=== PATIENT | female | born 1975 | race Caucasian/White ===

== ENCOUNTER 2017-08-12 09:49 | Emergency (ER) | payer MEDICAID ==
[2017-08-12] MEDS ORDERED: Ondansetron 4 MG/2 ML SDV IVPUSH ONE (10:20)
[2017-08-12] MEDS ORDERED: Ondansetron 4 MG/2 ML SDV ONE (10:24)
--- NOTE | 2017-08-12 10:40 | EDM.PDOC ---
ED HPI GENERAL MEDICAL PROBLEM - General Chief Complaint: Diabetic Complaint Stated Complaint: DIABETIC Time Seen by Provider: 08/12/17 09:50 Source of Information: Reports: Patient, Family History Limitations: Reports: Altered Mental Status. Denies: Physical Impairment, Respiratory Distress - History of Present Illness INITIAL COMMENTS - FREE TEXT/NARRATIVE: 42 yr female presents with N/V and hyperglycemia. She has Diabetes type 1. She has been nauseated with vomiting for 1-2 days. Daughter is with her and she has her insulin Basalgar with her and Novolog. No respiratory distress, no pain stated per pt. Zofran 4 mg IV given and Nacl @ 200cc/hr started to right arm. UP=118. Pt alert to take water. BP 100/48 to left arm with HOB elevated 60*. Pt wearing glasses. 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 History: Reports: (, on BCP) Other OB/BYN History: 2 C sections Endocrine/Metabolic History: Reports: Diabetes, Type I Social & Family History - Family History Family Medical History: Noncontributory Psychiatric: Reports: None Endocrine/Metabolic: Reports: Diabetes, type II Oncologic: Reports: Breast - Tobacco Use Smoking Status *Q: Light Tobacco Smoker Years of Tobacco use: 20 Packs/Tins Daily: 0.3 Second Hand Smoke Exposure: No - Caffeine Use Caffeine Use: Reports: Soda - Recreational Drug Use Recreational Drug Use: No ED ROS GENERAL - Review of Systems Review Of Systems: Unable To Obtain (Pt alert to taking fluids, but not responding to questions, daughter here and taking fluids yesterday.) ED EXAM GENERAL NO PERIP PULSE - Physical Exam Exam: See Below Exam Limited By: No Limitations General Appearance: No Apparent Distress, Lethargic Nose: Normal Inspection, Normal Mucosa Throat/Mouth: Normal Lips, Normal Voice, No Airway Compromise Head: Atraumatic, Normocephalic Neck: Supple, Non-Tender Respiratory/Chest: No Respiratory Distress, Lungs Clear, Normal Breath Sounds Cardiovascular: Normal Peripheral Pulses, Regular Rate, Rhythm, No Edema GI/Abdominal: Soft, Non-Tender, No Distention Back Exam: Normal Inspection Extremities: Normal Inspection, Normal Range of Motion, Non-Tender, No Pedal Edema Neurological: Alert, Normal Gait, Normal Reflexes, Slow to Respond Skin Exam: Warm, Dry, Normal Color Lymphatic: No Adenopathy Course - Vital Signs Last Recorded V/S: Last Vital Signs Temp 96.8 F 08/12/17 09:50 Pulse 110 H 08/12/17 09:50 Resp 20 08/12/17 09:50 BP 90/40 L 08/12/17 09:50 Pulse Ox 95 08/12/17 09:50 - Orders/Labs/Meds Orders: Active Orders 24 hr Category Date Time Status Bedrest [RC] ASDIRECTED Care 08/12/17 10:04 Active Blood Glucose Check, Bedside [] QIDACANDBED Care 08/12/17 10:04 Active Vital Signs [RC] Q2H Care 08/12/17 10:04 Active Chest 1V Frontal [CR] Stat Exams 08/12/17 11:28 Taken BASIC METABOLIC PANEL,BMP [CHEM] Stat Lab 08/12/17 12:05 Ordered Ciprofloxacin in D5W [Cipro in D5W 400 MG/200 ML] 400 Med 08/12/17 20:00 Active mg Premix Bag 1 bag IV Q12HR Insulin Regular, Human [HumuLIN R] 100 unit Med 08/12/17 10:15 Active Sodium Chloride 0.9% [Normal Saline] 100 ml IV .CONTINUOUS Sodium Chloride 0.9% [Normal Saline] 500 ml Med 08/12/17 10:15 Active IV .BOLUS Medication Orders Insulin Human Regular 100 unit (/ Sodium Chloride) 101 mls @ 5.05 mls/hr IV .CONTINUOUS PATRICIA; 5 UNITS/HR PRN Reason: Protocol Sodium Chloride (Normal Saline) 500 mls @ 1,000 mls/hr IV .BOLUS PATRICIA Ciprofloxacin/Dextrose 400 mg/ (Premix) 200 mls @ 200 mls/hr IV Q12HR PATRICIA Labs: Laboratory Tests 08/12/17 08/12/17 08/12/17 Range/Units 10:20 10:20 10:30 WBC 28.3 H* D (4.0-11.0) K/uL RBC 3.99 (3.80-5.80) M/uL Hgb 12.5 (11.5-16.5) g/dL Hct 40.6 (37.0-47.0) % MCV 102 H (76-96) fL MCH 31.3 (27.0-32.0) pg MCHC 30.8 L (31.0-35.0) g/dL RDW 12.1 (11.0-16.0) % Plt Count 475 D (150-500) K/uL MPV 10.6 H (6.0-10.0) fL Neut % (Auto) 85.5 H (45.0-70.0) % Lymph % (Auto) 9.1 L (20.0-40.0) % [place] % (Auto) 5.2 (3.0-10.0) % Eos % (Auto) 0.0 L (1.0-5.0) % Baso % (Auto) 0.2 (0.0-0.5) % Neut # (Auto) 24.15 H (2.00-7.50) K/uL Lymph # (Auto) 2.58 (1.50-4.00) K/uL [place] # (Auto) 1.46 H (0.20-0.80) K/uL Eos # (Auto) 0.01 L (0.04-0.40) K/uL Baso # (Auto) 0.05 (0.02-0.10) K/uL Sodium 130 L (136-145) mmol/L Potassium 6.4 H* D (3.5-5.1) mmol/L Chloride 88 L* (98-107) mmol/L Carbon Dioxide 3.4 L* (21.0-32.0) mmol/L Anion Gap 45.0 H (5.0-15.0) mmol/L BUN 61 H* D (8-26) mg/dL Creatinine 2.64 H D (0.55-1.02) mg/dL Est Cr Clr Drug Dosing TNP Estimated GFR (MDRD) 20 L (>60) MLS/MIN BUN/Creatinine Ratio 23.1 (6-25) Glucose 1168 H* D (74-100) mg/dL Calcium 9.8 (8.5-10.1) mg/dL Phosphorus 11.4 H (2.5-4.9) mg/dL Magnesium 3.0 H (1.8-2.4) mg/dL Total Bilirubin 0.6 D (0.0-1.0) mg/dL AST 25 (15-37) U/L ALT 23 (12-78) U/L Alkaline Phosphatase 130 H (46-116) U/L Total Protein 7.8 (6.4-8.2) g/dL Albumin 3.4 (3.4-5.0) g/dL Globulin 4.4 H (2.2-4.2) g/dL Albumin/Globulin Ratio 0.8 (0.8-2.0) Urine Color Urine Appearance (CLEAR) Urine pH (5.0-8.0) Ur Specific [place] (1.003-1.030) Urine Protein (NEGATIVE) mg/dL Urine Glucose (UA) (NEGATIVE) mg/dL Urine Ketones (NEGATIVE) mg/dL Urine Occult Blood (NEGATIVE) Urine Nitrite (NEGATIVE) Urine Bilirubin (NEGATIVE) Urine Urobilinogen (0.2-1.0) E.U./dL Ur Leukocyte Esterase (NEGATIVE) Urine RBC /HPF Urine WBC /HPF Ur Squamous Epith Cells /HPF Urine Bacteria /HPF Ketones Moderate H (NEGATIVE) 08/12/17 Range/Units 11:26 WBC (4.0-11.0) K/uL RBC (3.80-5.80) M/uL Hgb (11.5-16.5) g/dL Hct (37.0-47.0) % MCV (76-96) fL MCH (27.0-32.0) pg MCHC (31.0-35.0) g/dL RDW (11.0-16.0) % Plt Count (150-500) K/uL MPV (6.0-10.0) fL Neut % (Auto) (45.0-70.0) % Lymph % (Auto) (20.0-40.0) % [place] % (Auto) (3.0-10.0) % Eos % (Auto) (1.0-5.0) % Baso % (Auto) (0.0-0.5) % Neut # (Auto) (2.00-7.50) K/uL Lymph # (Auto) (1.50-4.00) K/uL [place] # (Auto) (0.20-0.80) K/uL Eos # (Auto) (0.04-0.40) K/uL Baso # (Auto) (0.02-0.10) K/uL Sodium (136-145) mmol/L Potassium (3.5-5.1) mmol/L Chloride (98-107) mmol/L Carbon Dioxide (21.0-32.0) mmol/L Anion Gap (5.0-15.0) mmol/L BUN (8-26) mg/dL Creatinine (0.55-1.02) mg/dL Est Cr Clr Drug Dosing Estimated GFR (MDRD) (>60) MLS/MIN BUN/Creatinine Ratio (6-25) Glucose (74-100) mg/dL Calcium (8.5-10.1) mg/dL Phosphorus (2.5-4.9) mg/dL Magnesium (1.8-2.4) mg/dL Total Bilirubin (0.0-1.0) mg/dL AST (15-37) U/L ALT (12-78) U/L Alkaline Phosphatase (46-116) U/L Total Protein (6.4-8.2) g/dL Albumin (3.4-5.0) g/dL Globulin (2.2-4.2) g/dL Albumin/Globulin Ratio (0.8-2.0) Urine Color Yellow Urine Appearance Clear (CLEAR) Urine pH 5.0 (5.0-8.0) Ur Specific [place] 1.010 (1.003-1.030) Urine Protein 30 H (NEGATIVE) mg/dL Urine Glucose (UA) 500 H (NEGATIVE) mg/dL Urine Ketones 40 H (NEGATIVE) mg/dL Urine Occult Blood Trace-lysed H (NEGATIVE) Urine Nitrite Negative (NEGATIVE) Urine Bilirubin Negative (NEGATIVE) Urine Urobilinogen 0.2 (0.2-1.0) E.U./dL Ur Leukocyte Esterase Negative (NEGATIVE) Urine RBC Not seen /HPF Urine WBC 0-5 H /HPF Ur Squamous Epith Cells Moderate /HPF Urine Bacteria Few /HPF Ketones (NEGATIVE) Meds: Medications Generic Name Dose Route Start Last Admin Trade Name Viola PRN Reason Stop Dose Admin Insulin Human Regular 100 unit 101 mls @ 5.05 mls/hr 08/12/17 10:15 / Sodium Chloride IV .CONTINUOUS PATRICIA Protocol 5 UNITS/HR Sodium Chloride 500 mls @ 1,000 mls/hr 08/12/17 10:15 Normal Saline IV .BOLUS PATRICIA Ciprofloxacin/Dextrose 400 mg/ 200 mls @ 200 mls/hr 08/12/17 20:00 Premix IV Q12HR PATRICIA Discontinued Medications Generic Name Dose Route Start Last Admin Trade Name Freq PRN Reason Stop Dose Admin Ciprofloxacin 500 mg 08/12/17 11:01 Ciprofloxacin Hcl PO 08/12/17 11:02 ONETIME ONE Ciprofloxacin/Dextrose Confirm 08/12/17 10:56 Cipro In D5w 400 Mg/200 Ml Administered 08/12/17 10:57 Dose 200 mls @ as directed .ROUTE .STK-MED ONE Ondansetron HCl 4 mg 08/12/17 10:20 Zofran IVPUSH 08/12/17 10:21 ONETIME ONE Ondansetron HCl Confirm 08/12/17 10:24 Zofran Administered 08/12/17 10:25 Dose 4 mg .ROUTE .STK-MED ONE - Re-Assessments/Exams Free Text/Narrative Re-Assessment/Exam: 08/12/17 11:44 Insulin 5 units IV given and Insulin 5 units/hr started after review of labs. K + 6.4, WBC 28.3, chl 89, creat 2.6 and BUN 61. 2 IV NACL open infusing. Pt taking fluids and thirsty. Urine of 150cc clear randy urine, U/A ordered and chest x-ray ordered and completed. 08/12/17 11:46 Pam Sneed, Dr Hollins accept pt for DKA and ordered 2-3 Liters fluids with 1 liter every 30 minutes, labs every 1 hour with blood sugar every 30 minutes. Last bedside BS >500. Admitting BS 1,168. Will recheck labs at 1200. Consult with Emre for care of pt and no changes with orders at this time. Departure - Departure Time of Disposition: 12:12 Disposition: DC/Tfer to Acute Hospital 02 Condition: Fair Clinical Impression: Hyperglycemia, DKA (diabetic ketoacidosis) - Discharge Information Referrals: PCP,None [Primary Care Provider] - Forms: ED Department Discharge - My Orders Last 24 Hours: My Active Orders 08/12/17 10:04 Bedrest [RC] ASDIRECTED Blood Glucose Check, Bedside [RC] QIDACANDBED Vital Signs [RC] Q2H 08/12/17 10:15 Insulin Regular, Human [HumuLIN R] 100 unit Sodium Chloride 0.9% [Normal Saline] 100 ml IV .CONTINUOUS Sodium Chloride 0.9% [Normal Saline] 500 ml IV .BOLUS 08/12/17 11:28 Chest 1V Frontal [CR] Stat 08/12/17 12:05 BASIC METABOLIC PANEL,BMP [CHEM] Stat 08/12/17 20:00 Ciprofloxacin in D5W [Cipro in D5W 400 MG/200 ML] 400 mg Premix Bag 1 bag IV Q12HR - Assessment/Plan Last 24 Hours: My Active Orders 08/12/17 10:04 Bedrest [RC] ASDIRECTED Blood Glucose Check, Bedside [RC] QIDACANDBED Vital Signs [RC] Q2H 08/12/17 10:15 Insulin Regular, Human [HumuLIN R] 100 unit Sodium Chloride 0.9% [Normal Saline] 100 ml IV .CONTINUOUS Sodium Chloride 0.9% [Normal Saline] 500 ml IV .BOLUS 08/12/17 11:28 Chest 1V Frontal [CR] Stat 08/12/17 12:05 BASIC METABOLIC PANEL,BMP [CHEM] Stat 08/12/17 20:00 Ciprofloxacin in D5W [Cipro in D5W 400 MG/200 ML] 400 mg Premix Bag 1 bag IV Q12HR
[2017-08-12] MEDS ORDERED: Ciprofloxacin in D5W 200 ML ONE (10:56)
[2017-08-12] MEDS: Sodium Chloride 0.9% 500 ML IV SCH ×2 (11:00→12:00)
[2017-08-12] MEDS ORDERED: Ciprofloxacin 500 MG Tab PO ONE (11:01)
[2017-08-12] MEDS: Sodium Chloride 0.9% 1,000 ML IV SCH ×2 (11:20→12:57)
[2017-08-12 11:57] VITALS: BP 90/40
[2017-08-12] MEDS ORDERED: Sodium Chloride 0.9%, Bacteriostatic 10 ML MDV IV SCH (12:00)
[2017-08-12] MEDS ORDERED: Insulin Regular, Human 100 Units/ML 3 ML Vial ONE (12:30)
--- NOTE | 2017-08-12 18:26 | CR ---
DATE OF SERVICE: 08/12/17 CLINICAL DATA: Leukocytosis AP CHEST: No priors. The heart size is normal. There are somewhat patchy opacities in the left lower lung suggesting the possibility of pneumonia/pneumonitis. The lungs are otherwise clear. No pneumothorax. No pleural effusions. [id number] MTDD
[2017-08-12] MEDS ORDERED: Ciprofloxacin in D5W 400 MG in Premix Bag 1 BAG IV SCH ×2 (20:00)
[2017-09-09] MEDS ORDERED: Ondansetron 4 MG/2 ML SDV IVPUSH ONE (10:00)
[2017-09-09] MEDS ORDERED: Insulin Regular, Human 100 Units/ML 3 ML Vial IV ONE (11:20)
[2017-09-10] MEDS ORDERED: Ondansetron 4 MG/2 ML SDV IVPUSH ONE (10:00)
[2017-09-10] MEDS ORDERED: Insulin Regular, Human 100 Units/ML 3 ML Vial IV ONE (11:20)
== END 2017-08-12 12:57 ==
LOC: LB.ED 09:49
DX: E10.10 Type 1 diabetes mellitus with ketoacidosis without coma (principal); Z72.0 Tobacco use
CPT/HCPCS: 36415; 71045; 80048; 80053; 81001; 82009; 82962; 83735; 84100; 85025; 96374; 96375; 99285; A9270; J1815; J2405; J7040; J7050